=== PATIENT | female | born 1980 | race Caucasian/White ===

== ENCOUNTER 2019-11-24 15:26 | Outpatient (CLI) | payer OTHER, SELFPAY ==
--- NOTE | ~2019-11-24 | US_ITS ---
EXAMINATION: US venous doppler LE RT DATE: 11/24/2019 15:58 INDICATION: Right lower limb pain and swelling TECHNIQUE: Mccullough scale images without and with compression and Doppler images of the right lower extre mity veins were obtained. COMPARISON: None. FINDINGS: The right common femoral vein, profunda femoral vein, femoral vein, popliteal vein, peronea l trunk, posterior tibial veins, and greater saphenous vein are patent. IMPRESSION: 1. Patent right lower extremity veins. No evidence of deep venous thrombosis. Reviewed, dictated and finalized at location A.
== END 2019-11-24 15:27 | disposition home or self-care (01) ==
LOC: ANHIMG 15:29
PROVIDERS: PCP Registered Nurse; Visit Provider Registered Nurse
DX: M79.661 Pain in right lower leg (principal); R22.41 Localized swelling, mass and lump, right lower limb
CPT/HCPCS: 93971

== ENCOUNTER → 2021-02-25 08:08 | Outpatient (CLI) | payer OTHER, SELFPAY ==
[2021-02-25 17:52] LABS: SARS-CoV-2 RNA PCR Negative
== END ==
PROVIDERS: PCP Registered Nurse; Visit Provider Registered Nurse
DX: J02.9 Acute pharyngitis, unspecified (principal); R51.9 Headache, unspecified; Z20.822 Contact with and (suspected) exposure to COVID-19
CPT/HCPCS: C9803; U0003; U0005

== ENCOUNTER 2022-07-12 12:35 | Emergency (ER) | payer OTHER, SELFPAY ==
[2022-07-12 12:41] VITALS: BP 132/74; PULSE 113; RESP 22; TEMP 36.1; O2SAT 100
[2022-07-12 13:28] LABS: Influenza A QL RT-PCR Negative (Negative); Influenza B QL RT-PCR Negative (Negative); RSV RNA, RT-PCR Negative (Negative); SARS-CoV-2 RNA PCR Positive
--- NOTE | 2022-07-12 14:02 | ED.GENADULT ---
HPI - General Adult General Chief complaint: Upper Respiratory Infection Stated complaint: flu-like sx since yesterday Time Seen by Provider: 07/12/22 13:48 Source: patient and family Mode of arrival: ambulatory Limitations: no limitations History of Present Illness HPI narrative: 41 years old white female presents with nasal congestion, fever, chills and general body aches. This started yesterday. Patient had 1 dose of COVID vaccination long time ago. She denies any trouble breathing or chest pain. Related Data Allergies Allergy/AdvReac Type Severity Reaction Status Date / Time No Known Allergies Allergy Unverified 07/01/18 11:33 Review of Systems Review of Systems: All systems reviewed & are unremarkable except as noted in HPI and below Exam Narrative: General appearance: Well-developed, well-nourished Skin: Normal color Head: Normocephalic, nontraumatic Eyes: Clear conjunctiva ENT: Oropharynx normal, ears normal, nose normal Neck: Supple, nontender Chest and respiratory: Airway patent, no respiratory distress, no accessory muscle use Heart: Regular rate/rhythm Abdomen: Soft, nontender, no organomegaly, quiet bowel sounds Vascular: Normal peripheral pulses, normal capillary refill. Musculoskeletal: Normal range of motion, nontender back Neurologic: Alert and oriented ?3, GENERATOR OPERATOR is normal as tested, no gross motor deficit Course Course Emergency Course: Patient is 41 years old white female, presents with COVID symptoms, tested positive for COVID, patient is healthy otherwise, does not have any risk factor like cancer, diabetes, obesity, etc. for [place] management. Patient will be discharged on supportive care. Vital Signs Vital signs: Vital Signs Temperature 36.1 C L 07/12/22 12:41 Pulse Rate 113 H 07/12/22 12:41 Respiratory Rate 22 H 07/12/22 12:41 Blood Pressure 132/74 07/12/22 12:41 Pulse Oximetry 100 07/12/22 12:41 Oxygen Delivery Room Air 07/12/22 12:41 Temperature 36.1 C L 07/12/22 12:41 Pulse Rate 113 H 07/12/22 12:41 Respiratory Rate 22 H 07/12/22 12:41 Blood Pressure 132/74 07/12/22 12:41 Pulse Oximetry 100 07/12/22 12:41 Oxygen Delivery Room Air 07/12/22 12:41 Medical Decision Making Vital Signs Vital Signs: Vital Signs Temperature 36.1 C L 07/12/22 12:41 Pulse Rate 113 H 07/12/22 12:41 Respiratory Rate 22 H 07/12/22 12:41 Blood Pressure 132/74 07/12/22 12:41 Pulse Oximetry 100 07/12/22 12:41 Oxygen Delivery Room Air 07/12/22 12:41 Temperature 36.1 C L 07/12/22 12:41 Pulse Rate 113 H 07/12/22 12:41 Respiratory Rate 22 H 07/12/22 12:41 Blood Pressure 132/74 07/12/22 12:41 Pulse Oximetry 100 07/12/22 12:41 Oxygen Delivery Room Air 07/12/22 12:41 Lab Data Labs: Lab Results 07/12/22 Range/Units 12:45 Influenza A (RT-PCR) Negative (Negative) Influenza B (RT-PCR) Negative (Negative) RSV (RT-PCR) Negative (Negative) SARS-CoV-2 RNA (RT-PCR) Positive A Critical Care Time Critical Care Time Critical Care Time: No Discharge Plan Discharge Clinical Impression: COVID-19, Myalgia Patient Disposition: Home, Self-Care Condition: Stable Instructions: Antibiotic Form, Musculoskeletal Pain (ED), COVID-19 (Coronavirus Disease 2019) (ED) Additional Instructions: Return if symptoms are worsening , call your family physician for appointment, take Tylenol, ibuprofen as as needed for aches and pain, continue home medications. Remain isolated at home for the next 5 days Get [id number] Follow-up/Referrals: Sangeeta,JORGE A Guadarrama [Primary Care Provider] - Stand Alone Forms: Work/School R
== END 2022-07-12 14:15 | disposition home or self-care (01) ==
PROVIDERS: Emergency Provider Emergency Medicine; PCP Registered Nurse
DX: U07.1 COVID-19 (principal); M79.10 Myalgia, unspecified site; Z28.311 Partially vaccinated for COVID-19
CPT/HCPCS: 87637; 99283

== ENCOUNTER 2023-02-21 23:45 | Emergency (ER) | payer OTHER, SELFPAY ==
--- NOTE | ~2023-02-21 | XR_ITS ---
Clinical Indication: Chest pain PA and lateral views of the chest: Comparison: None Findings: The lungs are clear, without evidence of focal consolidation or pleural effusion. Cardiome diastinal silhouette is within normal limits. Bones and soft tissues are unremarkable. Impression: Normal chest. Reviewed, dictated and finalized at location . Impression: Normal chest.
--- NOTE | 2023-02-21 23:48 | ECG_ITS ---
Measurements Intervals [place] Rate: 84 P: 79 NH: 161 QRS: 77 QRSD: 99 T: 73 QT: 341 QTc: 405 Interpretive Statements SINUS RHYTHM BASELINE ARTIFACT- I, II, AVR, AVF, V1 NORMAL ECG NO PREVIOUS ECG AVAILABLE FOR COMPARISON Electronically Signed On 02-22-2023 6:51:56 CDT by Dipak Somers D.O.
[2023-02-21 23:52] VITALS: BP 134/91; PULSE 87; RESP 18; TEMP 36.6; O2SAT 98
[2023-02-21 23:56] VITALS: PULSE 87
[2023-02-22] MEDS: ASPIRIN 81 MG CHEWABLE TABLET 324 MG PO
[2023-02-22 00:05] LABS: Basophils Percent Auto 0.5 % (0.2-1.2); Eosinophils Absolute Auto 0.1 K/mm3 (0-0.3); Eosinophils Percent Auto 1.6 % (0-4.4); Hematocrit 40.5 % (37.0-47.0); Hemoglobin 13.4 g/dL (12.0-15.0); Immature Granulocyte Absolute 0.01 K/mm3 (0.00-0.031); Immature Granulocyte Percent A 0.2 % (0-0.5); Lymphocytes Absolute Auto 1.89 K/mm3 (0.9-3.2); Lymphocytes Percent Auto 34.2 % (18.3-44.2); Mean Corpuscular HGB Conc 33.1 g/dl (32-36); Mean Corpuscular Hemoglobin 31.6 pg (26-34); Mean Corpuscular Volume 95.5 fl (80-100); Mean Platelet Volume 9.7 fl (7.4-10.4); Monocytes Absolute Auto 0.5 K/mm3 (0.1-0.6); Monocytes Percent Auto 8.7 % (2.6-8.5); Neutrophils Percent Auto 54.8 % (45.5-73.1); Platelet Count Result 262 k/mm3 (150-375); Red Blood Count 4.24 M/mm3 (4.2-5.4); White Blood Count 5.5 K/mm3 (4.5-10.0)
[2023-02-22] MEDS: NITROGLYCERIN SL 0.4 MG TABLET SUBLINGUAL (00:14)
--- NOTE | 2023-02-22 00:16 | ED.GENADULT ---
HPI - General Adult General Chief complaint: Chest Pain Stated complaint: chest pain Time Seen by Provider: 02/21/23 23:53 History of Present Illness HPI narrative: Patient 42-year-old female presents emerged department chief complaint of chest discomfort. Patient reports that she was laying in bed eating some pretzels and felt as though the pretzel started to get stuck in her esophagus. The patient reports she is still able to swallow but reports she has a fullness and tightness sensation in her midportion of her chest. Patient denies diaphoresis denies radiation to her arms reports no prior history of cardiac disease reports about 10 years ago she had a stress test that was negative. Related Data Allergies Allergy/AdvReac Type Severity Reaction Status Date / Time No Known Allergies Allergy Verified 02/21/23 23:55 Review of Systems Review of Systems: A 10 system review of systems was completed on the patient and is negative except for what is stated in the HPI. Nursing and ancillary documentation was reviewed. Exam Narrative: GENERAL: Well-appearing, well-nourished, and in no acute distress. HEAD: Normocephalic, atraumatic. EYES: PERRLA and EOMI. ENT: Nares clear, no rhinorrhea or epistaxis. Mucous membranes moist. NECK: Supple. CHEST: Clear to auscultation. No respiratory distress. HEART: Regular rate and rhythm. No murmur heard. Normal peripheral pulses. ABDOMEN: Soft, nontender, nondistended, normal active bowel sounds. EXTREMITIES: Normal range of motion. No edema. SKIN: Warm, dry, no rash. NEURO: No focal deficits. Alert and oriented x3. PSYCH: Normal mood and affect. Course Vital Signs Vital signs: Vital Signs Temperature 36.6 C 02/21/23 23:52 Pulse Rate 87 02/21/23 23:52 Respiratory Rate 18 02/21/23 23:52 Blood Pressure 134/91 H 02/21/23 23:52 Pulse Oximetry 98 02/21/23 23:52 Temperature 36.6 C 02/21/23 23:52 Pulse Rate 87 02/21/23 23:56 Respiratory Rate 18 02/21/23 23:52 Blood Pressure 134/91 H 02/21/23 23:52 Pulse Oximetry 98 02/21/23 23:52 Medical Decision Making MDM Narrative Medical decision making narrative: Differential diagnosis includes ACS, atypical chest pain, noncardiac chest pain, reflux, EKG showed sinus rhythm rate of [address] elevation or ST depression Laboratory studies were obtained on the patient which showed normal CBC normal CMP normal lipase negative troponin Chest x-ray showed no focal infiltrate 3-hour delta troponin showed no evidence of change in the troponin level. Patient be discharged home to follow-up with her primary care provider Vital Signs Vital Signs: Vital Signs Temperature 36.6 C 02/21/23 23:52 Pulse Rate 87 02/21/23 23:52 Respiratory Rate 18 02/21/23 23:52 Blood Pressure 134/91 H 02/21/23 23:52 Pulse Oximetry 98 02/21/23 23:52 Temperature 36.6 C 02/21/23 23:52 Pulse Rate 87 02/21/23 23:56 Respiratory Rate 18 02/21/23 23:52 Blood Pressure 134/91 H 02/21/23 23:52 Pulse Oximetry 98 02/21/23 23:52 Lab Data 02/21/23 23:59 02/21/23 23:59 Labs: Lab Results 02/21/23 02/22/23 Range/Units 23:59 03:00 WBC 5.5 (4.5-10.0) K/mm3 RBC 4.24 (4.2-5.4) M/mm3 Hgb 13.4 (12.0-15.0) g/dL Hct 40.5 (37.0-47.0) % MCV 95.5 (80-100) fl MCH 31.6 (26-34) pg MCHC 33.1 (32-36) g/dl RDW 12.0 (11.5-14.5) % Plt Count 262 (150-375) k/mm3 MPV 9.7 (7.4-10.4) fl Immature Gran % (Auto) 0.2 (0-0.5) % Neut % (Auto) 54.8 (45.5-73.1) % Lymph % (Auto) 34.2 (18.3-44.2) % [place] % (Auto) 8.7 H (2.6-8.5) % Eos % (Auto) 1.6 (0-4.4) % Baso % (Auto) 0.5 (0.2-1.2) % Lymph # (Auto) 1.89 (0.9-3.2) K/mm3 [place] # (Auto) 0.5 (0.1-0.6) K/mm3 Eos # (Auto) 0.1 (0-0.3) K/mm3 Baso # (Auto) 0.0 (0.0-0.1) K/mm3 Abs Immat Gran (auto) 0.01 (0.00-0.031) K/mm3 Absolute Neuts (auto) 3.0 (1.3-6.
[2023-02-22] MEDS: BELLADONNA ALK/PHENOB ELIX 10 ML, MAG HYDROX/ALUMINUM HYD/SIMETH 30 ML, LIDOCAINE HCL 2... PO (00:38)
[2023-02-22 00:44] LABS: INR 1.1; Prothrombin Time 14.1 Seconds (11.1-14.7)
[2023-02-22 00:45] LABS: Partial Thromboplastin Time 28.7 SECONDS (22.3-36.8)
[2023-02-22 00:54] LABS: Alanine Aminotransferase 16 U/L (6-35); Alkaline Phosphatase 57 U/L (38-126); Anion Gap 8 mmol/L (8-16); Aspartate Amino Transferase 26 U/L (14-36); Bilirubin,Total 0.4 mg/dL (0.2-1.3); Blood Urea Nitrogen 9 mg/dL (7-17); Calcium 9.1 mg/dL (8.4-10.2); Carbon Dioxide 29 mmol/L (22-30); Chloride 103 mmol/L (98-107); Estimated Glomerular Filt Rate > 60; Glucose 96 mg/dL (65-110); Lipase 277 U/L (23-300); Potassium 3.4 mmol/L (3.4-5.0); Sodium 140 mmol/L (137-145)
[2023-02-22 01:00] VITALS: BP 105/74; PULSE 75; RESP 16; O2SAT 99
[2023-02-22 01:04] LABS: Troponin I < 0.012 ng/mL (0.000-0.034)
[2023-02-22 02:00] VITALS: BP 109/75; PULSE 70; RESP 15; O2SAT 99
[2023-02-22 03:00] VITALS: BP 94/59; PULSE 73; RESP 15
[2023-02-22 03:26] LABS: Troponin I < 0.012 ng/mL (0.000-0.034)
[2023-02-22 03:59] VITALS: BP 94/59; PULSE 63; RESP 15; O2SAT 100
== END 2023-02-22 04:00 | disposition home or self-care (01) ==
PROVIDERS: Emergency Provider Emergency Medicine; PCP Registered Nurse
DX: R07.89 Other chest pain (principal)
CPT/HCPCS: 36415; 71046; 80053; 83690; 84484; 85025; 85610; 85730; 93005; 99284; A9270